=== PATIENT | male | born 1950 | race Caucasian/White ===

== ENCOUNTER 2024-02-18 16:39 | Emergency (ER) | payer MEDICARE, OTHER ==
[~2024-02-18] VITALS: Ht 185.4 cm; Wt 90.9 kg
[2024-02-18 17:05] VITALS: TEMP 97.9
[2024-02-18] MEDS ORDERED: LidoCAINE 2% Topical Jelly 11mL syringe (UROJET) TOP ONE (17:55)
[2024-02-18] MEDS: LidoCAINE 2% Topical Jelly 11mL syringe (UROJET) TOP ONE (18:27)
[2024-02-18] MEDS: HYDROcodone/acetaminophen 10/325mg tab PO ONE (19:31)
[2024-02-18] MEDS ORDERED: HYDR-3972 PO (20:32)
[2024-02-18 21:00] VITALS: BP 176/92; PULSE 75; RESP 17; O2SAT 96
[2024-02-18] MEDS ORDERED: LEVO-65 PO (21:22)
[2024-02-18] MEDS: oxyCODONE/APAP 10/325mg tablet PO ONE (21:24)
[2024-02-18] MEDS: levoFLOXACIN 250mg tablet PO ONE (21:24)
== END 2024-02-18 21:51 | disposition home or self-care (01) ==
LOC: EDBD 16:40 → ER 16:40
DX: R33.9 Retention of urine, unspecified (principal); R31.9 Hematuria, unspecified
CPT/HCPCS: 51702; 99285; A4314; A4358; A5200